=== PATIENT | male | born 2000 | race Caucasian/White ===

== ENCOUNTER 2022-08-23 14:03 | Emergency (ER) | payer OTHER, SELFPAY ==
[2022-08-23 14:15] VITALS: BP 134/79; PULSE 100; RESP 20; TEMP 37; O2SAT 100
[2022-08-23 14:21] VITALS: BP 134/79; PULSE 100; RESP 20; TEMP 37; O2SAT 100
--- NOTE | 2022-08-23 14:25 | ED.URI ---
HPI - URI/Sore Throat General Chief Complaint: Upper Respiratory Infection Stated Complaint: congestion, cough, headache, loss of voice Time Seen by Provider: 08/23/22 14:25 Source: patient Mode of arrival: ambulatory Limitations: no limitations History of Present Illness HPI Narrative: 21-year-old male presents with dad with complaint of nasal congestion, cough, sore throat, postnasal drainage, fatigue for 1 week. Was swabbed for COVID and flu 2 days ago. Denies chest pain and shortness of breath. No nausea vomiting diarrhea. Taking [id number] medication to treat his symptoms. Reports that congestion is ?severe ?. Concerned they have bacterial sinus infection. Also report redness, drainage to left eye. All systems reviewed and negative except as noted above. Related Data Allergies Allergy/AdvReac Type Severity Reaction Status Date / Time No Known Allergies Allergy Verified 08/23/22 14:20 Review of Systems Review of Systems: CONSTITUTIONAL: Denies fever, chills, or sweats. EYES: Denies visual changes, redness, or discharge. ENT: Reports rhinorrhea, congestion, sinus pressure, Sore throat. Denies otalgia. CARDIOVASCULAR: Denies chest pain, palpitations, or edema. RESPIRATORY: Reports cough. Denies dyspnea. GASTROINTESTINAL: Denies abdominal pain, nausea, vomiting, or diarrhea. GENITOURINARY: Denies dysuria or hematuria. SKIN: Denies rash or itching. MUSCULOSKELETAL: Denies back pain, joint pain, or myalgia. NEUROLOGIC: Denies headache, numbness, or weakness. PSYCHIATRIC: Denies anxiety or depression. All other systems reviewed are negative, except as documented in HPI. PMFSH Comments At time of signature, agree with nursing past medical, surgical, social and family history. There is no relevant family history pertinent to the presenting complaint. Exam Narrative: GENERAL: This is a well-nourished, well-developed patient, in no apparent distress. HEAD: normocephalic, atraumatic. EYES: PERRL. Sclera clear/white. Vision is grossly intact. EARS: External ears normal, auditory canals clear and without drainage, of fluid bilateral TMs without perforation or erythema. NOSE: External nose normal PERRLA nasal drainage, moderate congestion, bilateral maxillary and frontal sinus tenderness. THROAT: Mucous membranes moist, erythema and swelling. NECK: Neck supple, non-tender without lymphadenopathy, masses or thyromegaly. CARDIOVASCULAR: Regular rate and rhythm without murmurs, gallops, or rubs. RESPIRATORY: Clear to auscultation. Breath sounds equal bilaterally. No wheezes, rales, or rhonchi. SKIN: warm, Dry, intact with no suspicious lesions or rash, good texture and turgor. NEURO: awake, alert, and oriented to person, place and time. There were no obvious focal neurologic abnormalities. EXTREMITIES: No joint tenderness, effusion, or edema noted. Course Course Level of Care: Express Care Visit Vital Signs Vital signs: Vital Signs Temperature 37.0 C 08/23/22 14:15 Pulse Rate 100 08/23/22 14:15 Respiratory Rate 20 08/23/22 14:15 Blood Pressure 134/79 08/23/22 14:15 Pulse Oximetry 100 08/23/22 14:15 Oxygen Delivery Room Air 08/23/22 14:15 Temperature 37.0 C 08/23/22 14:21 Pulse Rate 100 08/23/22 14:21 Respiratory Rate 20 08/23/22 14:21 Blood Pressure 134/79 08/23/22 14:21 Pulse Oximetry 100 08/23/22 14:21 Oxygen Delivery Room Air 08/23/22 14:21 Reviewed MDM - URI/Sore Throat MDM Narrative Medical decision making narrative: Patient is aware of diagnosis, understands and agrees to treatment plan. Anticipatory guidance given. Patient agrees to follow-up as directed and is aware of reasons to seek care at the emergency department. Portions of this record may have been created with voice recognition software Discharge Plan Discharge Clinical Impression: Acute bacterial sinusitis, Acute bacterial conjunctivitis of both eyes Patient Disposition: Home, Self-Care
== END 2022-08-23 14:44 | disposition home or self-care (01) ==
PROVIDERS: Emergency Provider Nurse Practitioner Family; PCP Pediatrics
DX: J01.90 Acute sinusitis, unspecified (principal); H10.33 Unspecified acute conjunctivitis, bilateral
CPT/HCPCS: 99203; G0463